=== PATIENT | female | born 1995 | race Two or more races ===

== ENCOUNTER → 2024-08-28 | Outpatient (CLI) | payer OTHER ==
[2024-08-28 14:23] LABS: HEMATOCRIT 35.9 % (36.0-47.0); HEMOGLOBIN 11.6 g/dl (12.0-15.5); MEAN CORPUSCULAR HEMOGLOBIN 28.1 pg (27.0-33.0); MEAN CORPUSCULAR HGB CONC 32.3 g/dl (32.0-36.5); MEAN CORPUSCULAR VOLUME 86.9 fl (80.0-96.0); PLATELET COUNT, AUTOMATED 302 10^3/uL (150-450); RED BLOOD COUNT 4.13 10^6/uL (4.00-5.40); WHITE BLOOD COUNT 8.7 10^3/uL (4.0-10.0)
[2024-08-28 14:25] LABS: GLUCOSE CHALLENGE TEST 1 HOUR 116 MG/DL (LESS THAN 140)
[2024-08-28 15:21] LABS: Trichomonas vaginalis (AMP) NOT DETECTED (NEGATIVE)
[2024-08-28 15:43] LABS: GC DNA AMPLIFICATION NEGATIVE (NEGATIVE)
[2024-08-28 16:49] LABS: HIV 1&2 SCREEN NEGATIVE (NEGATIVE)
[2024-08-28 16:56] LABS: HEPATITIS C VIRUS ABY INDEX 0.03 INDEX (<0.8)
== END ==
LOC: M PLALAB 09:35
PROVIDERS: ATTEND Obstetrics & Gynecology
DX: Z34.80 Encounter for supervision of other normal pregnancy, unspecified trimester (principal)

== ENCOUNTER → 2024-09-06 | Outpatient (CLI) | payer OTHER | LOC: M WHC 13:25 → EDUNIT# 13:30 | PROVIDERS: ATTEND Obstetrics & Gynecology | DX: Z34.92 Encounter for supervision of normal pregnancy, unspecified, second trimester (principal); Z3A.29 29 weeks gestation of pregnancy ==

== ENCOUNTER 2024-11-21 11:23 | Outpatient (CLI) | payer OTHER, MEDICAID ==
[~2024-11-21] VITALS: Ht 160 cm; Wt 73.4 kg
[2024-11-21 11:48] VITALS: BP 119/83
[2024-11-21] MEDS ORDERED: ACET-897 PO (11:48)
[2024-11-21] MEDS ORDERED: PRENTAB9 PO (11:48)
[2024-11-21] MEDS ORDERED: HOME MED LIST COMPLETE! XX SCH (11:50)
== END 2024-11-21 12:55 | disposition home or self-care (01) ==
LOC: M LDO 11:23
PROVIDERS: ATTEND Obstetrics & Gynecology
DX: O36.8130 Decreased fetal movements, third trimester, not applicable or unspecified (principal); O99.820 Streptococcus B carrier state complicating pregnancy; B95.1 Streptococcus, group B, as the cause of diseases classified elsewhere; Z3A.40 40 weeks gestation of pregnancy
CPT/HCPCS: 59025; G0463

== ENCOUNTER 2024-11-24 10:22 | Outpatient (CLI) | payer MEDICAID, OTHER ==
[~2024-11-24] VITALS: Ht 160 cm; Wt 74.0 kg
[~2024-11-24 10:22] MED LIST: ACET-897 PO; PRENTAB9 PO
[2024-11-24 10:42] VITALS: BP 123/69; O2SAT 100
[2024-11-24] MEDS ORDERED: HOME MED LIST COMPLETE! XX SCH (10:50)
[2024-11-24 12:08] VITALS: BP 124/75
== END 2024-11-24 12:44 | disposition home or self-care (01) ==
LOC: M LDO 10:22
PROVIDERS: ATTEND Obstetrics & Gynecology
DX: O47.1 False labor at or after 37 completed weeks of gestation (principal); O48.0 Post-term pregnancy; Z3A.41 41 weeks gestation of pregnancy
CPT/HCPCS: 59025; 76815; G0463

== ENCOUNTER 2024-11-24 22:44 | Inpatient (IN) | payer MEDICAID, OTHER ==
[~2024-11-24] VITALS: Ht 160 cm; Wt 74.6 kg
[2024-11-24] MEDS ORDERED: HOME MED LIST COMPLETE! XX SCH ×2 (22:55→23:25)
[2024-11-24 23:03] VITALS: BP 115/75; O2SAT 98
[2024-11-24 23:31] LABS: PLATELET COUNT, AUTOMATED 233 10^3/uL (150-450)
[2024-11-24] MEDS ORDERED: TRANEXAMIC ACID INJection 1,000 MG in NS 100 ML IV PRN (23:45)
[2024-11-24] MEDS: LR 1,000 ML IV SCH (23:45)
[2024-11-24] MEDS ORDERED: METHYLERGONOVINE MALEATE 0.2 MG/ML 1 ML VIAL IM PRN (23:45)
[2024-11-24] MEDS ORDERED: PENICILLIN G POTASSIUM 5 MU IV 5 MU in DEXTROSE 5% (D5W) MINI-BAG PLU 100 ML IV STA (23:45)
[2024-11-24] MEDS ORDERED: CARBOPROST TROMETHAMINE 250 MCG/ML AMP IM PRN (23:45)
[2024-11-24] MEDS ORDERED: OXYTOCIN DRIP 30 UNITS in IV 1 EA IV PRN (23:45)
[2024-11-25] VITALS (22 sets, daily range): BP systolic 106–155; BP diastolic 57–102
[2024-11-25] MEDS: miSOPROStol 50 MCG 1/2 TABLET PO SCH
[2024-11-25 00:26] LABS: HIV 1&2 SCREEN NEGATIVE (NEGATIVE)
[2024-11-25 00:33] LABS: HEPATITIS C VIRUS ABY INDEX 0.09 INDEX (<0.8)
[2024-11-25] MEDS ORDERED: PEN G POT 3,000,000 UNIT/50 ML 3,000,000 UNIT in IV 1 EA IV SCH (03:45)
[2024-11-25] MEDS: LACTATED RINGER'S 1000 ML IV STA (19:55)
[2024-11-25] MEDS: PENICILLIN G POTASSIUM 5 MU IV 5 MU in DEXTROSE 5% (D5W) MINI-BAG PLU 100 ML IV STA (19:55)
[2024-11-25] MEDS: OXYTOCIN DRIP 30 UNITS in IV 1 EA IV SCH (20:24)
[2024-11-25] MEDS ORDERED: EPIDURAL/PCA KEYS XX PRN (21:00)
[2024-11-25] MEDS ORDERED: LR 500 ML IV PRN (21:00)
[2024-11-25] MEDS ORDERED: diphenhydrAMINE 50 MG/ML VIAL IV PRN (21:00)
[2024-11-25] MEDS ORDERED: NALOXONE INJ 0.4MG/1ML VIAL IV PRN (21:00)
[2024-11-25] MEDS: FENTANYL/ROPIVACAINE/NACL BAG 100 ML EPIDURAL SCH (21:02)
[2024-11-25] MEDS: ONDANSETRON 4MG 2ML VIAL IV PRN (22:55)
[2024-11-26] VITALS (24 sets, daily range): BP systolic 97–145; BP diastolic 49–97; O2SAT 99–100
[2024-11-26] MEDS: PEN G POT 3,000,000 UNIT/50 ML 3,000,000 UNIT in IV 1 EA IV SCH (00:14)
[2024-11-26] MEDS: LIDOCAINE 1% MDV 20 ML VIAL INFIL PRN (07:34)
[2024-11-26] MEDS ORDERED: RHOGAM 300MCG (1500IU) INJ IM SCH (08:35)
[2024-11-26] MEDS ORDERED: DIBUCAINE 1% OINTMENT 30 GM TOP PRN (08:35)
[2024-11-26] MEDS ORDERED: ANUSOL HC CREAM 30 GM TOP PRN (08:35)
[2024-11-26] MEDS ORDERED: MOM 30 ML SUSPENSION UDC PO PRN (08:35)
[2024-11-26] MEDS ORDERED: ACETAMINOPHEN 325 MG TAB PO PRN (08:35)
[2024-11-26] MEDS ORDERED: IBUPROFEN 600 MG TAB PO PRN (08:35)
[2024-11-26] MEDS: PRENATAL VITAMINS CHEWABLE TABLET PO SCH (09:00)
[2024-11-26] MEDS: IBUPROFEN 800 MG TAB PO PRN (11:12)
[2024-11-26] MEDS: ACETAMINOPHEN 500 MG TAB PO PRN (18:43)
[2024-11-27 06:00] VITALS: BP 103/57; O2SAT 100
[2024-11-27] MEDS: DOCUSATE SODIUM 100 MG CAPSULE PO PRN (16:19)
[2024-11-27 18:00] VITALS: BP 132/84; O2SAT 100
[2024-11-28 06:20] VITALS: BP 126/82; O2SAT 100
[2024-11-28] MEDS ORDERED: MEASLES,MUMPS,RUBELLA VACCINE INJ (MMR-II) SC.IMMUN ONE (09:00)
== END 2024-11-28 14:30 | disposition home or self-care (01) | DRG 560 ==
LOC: M LDI 22:44 → M OBS 11-26 09:54
PROVIDERS: ADMIT Obstetrics & Gynecology; ATTEND Obstetrics & Gynecology
PROC: 3E0P7GC Introduction of Other Therapeutic Substance into Female Reproductive, Via Natural or Artificial Opening (ICD-10-PCS; 2024-11-24)
PROC: 3E033VJ Introduction of Other Hormone into Peripheral Vein, Percutaneous Approach (ICD-10-PCS; 2024-11-24)
PROC: 10E0XZZ Delivery of Products of Conception, External Approach (ICD-10-PCS; principal; 2024-11-26)
PROC: 0KQM0ZZ Repair Perineum Muscle, Open Approach (ICD-10-PCS; 2024-11-26)
DX: O48.0 Post-term pregnancy (principal); O70.1 Second degree perineal laceration during delivery; Z37.0 Single live birth; Z3A.41 41 weeks gestation of pregnancy